=== PATIENT | female | born 1970 | race Caucasian/White ===

== ENCOUNTER 2021-11-10 12:05 | Emergency (ER) | payer OTHER, BC ==
[~2021-11-10] VITALS: Ht 170.2 cm; Wt 60.9 kg
[2021-11-10] MEDS ORDERED: FLUO20CA22 PO (12:25)
[2021-11-10] MEDS ORDERED: BUPR-69 PO (12:25)
[2021-11-10] MEDS ORDERED: LOSA100T50 PO (12:25)
[2021-11-10] MEDS ORDERED: DOCU100C16 PO (12:25)
[2021-11-10] MEDS ORDERED: OMEP-221 PO (12:25)
[2021-11-10] MEDS ORDERED: ALPR0.5T3 PO (12:25)
[2021-11-10] MEDS ORDERED: DILT240C28 PO (12:25)
[2021-11-10] MEDS ORDERED: DICL1GEL3 (12:25)
[2021-11-10] MEDS ORDERED: ATOR40TA75 PO (12:25)
[2021-11-10] MEDS ORDERED: MORPHINE 2 MG/ML 1ML VIAL (J2270) IV ONE (12:35)
[2021-11-10] MEDS ORDERED: ONDANSETRON 4MG/2ML VIAL IV ONE (12:35)
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
[2021-11-10] MEDS ORDERED: CYCL5TAB PO (13:40)
[2021-11-10 13:55] VITALS: BP 172/79
== END 2021-11-10 14:00 | disposition home or self-care (01) ==
LOC: M ED 12:05 → EDBD 12:05 → M ED 14:00
DX: S16.1XXA Strain of muscle, fascia and tendon at neck level, initial encounter (principal); S40.011A Contusion of right shoulder, initial encounter; V48.6XXA Car passenger injured in noncollision transport accident in traffic accident, initial encounter; Y92.9 Unspecified place or not applicable; Y93.9 Activity, unspecified; Y99.9 Unspecified external cause status; I10 Essential (primary) hypertension; K21.9 Gastro-esophageal reflux disease without esophagitis; G62.9 Polyneuropathy, unspecified; Z91.89 Other specified personal risk factors, not elsewhere classified
CPT/HCPCS: 70450; 72125; 73030; 96374; 96375; 99284; J2270; J2405